=== PATIENT | female | born 1990 | race Caucasian/White ===

== ENCOUNTER → 2019-11-03 | Outpatient (CLI) | payer OTHER ==
--- NOTE | 2019-11-03 14:57 | US ---
EXAMINATION TYPE: US pelvic complete DATE OF EXAM: 11/03/2019 COMPARISON: NONE CLINICAL HISTORY: N91.2 Amenorrhea. TECHNIQUE: Transabdominal (TA). Date of LMP: 10/04/2019 EXAM MEASUREMENTS: Uterus: 10.4 x 4.4 x 5.6 cm Endometrial Stripe: Not definitely defined. Right Ovary: 2.9 x 2.6 x 2.9 cm Left Ovary: 3.2 x 1.8 x 3.5 cm Uterus not well visualized, patient declined transvaginal ultrasound today. 1. Uterus: Anteverted wnl 2. Endometrium: wnl 3. Right Ovary: wnl 4. Left Ovary: wnl 5. Bilateral Adnexa: wnl 6. Posterior cul-de-sac: no free fluid IMPRESSION: Suboptimal examination with transabdominal imaging. The patient declined transvaginal joseph ging. Ovaries appear unremarkable. Endometrial thickness is poorly defined as is the uterus.
== END | disposition home or self-care (01) ==
LOC: RADUSWWP 14:13
PROVIDERS: ATTEND Family Medicine
DX: R93.89 Abnormal findings on diagnostic imaging of other specified body structures (principal); N91.2 Amenorrhea, unspecified
CPT/HCPCS: 76856

== ENCOUNTER → 2019-11-21 | Outpatient (CLI) | payer OTHER ==
--- NOTE | 2019-11-21 12:03 | US ---
EXAMINATION TYPE: US transvaginal DATE OF EXAM: 11/21/2019 COMPARISON: NONE CLINICAL HISTORY: N91.2 Amenorrhea. TECHNIQUE: Transvaginal (TV). Date of LMP: 11/07/19 EXAM MEASUREMENTS: Uterus: 6.1 x 2.1 x 2.3cm Endometrial Stripe: 0.6 cm Right Ovary: Obscured by overlying bowel gas, body habitus Left Ovary: Obscured by overlying bowel gas, body habitus Patient of large body habitus. Technically difficult and limited study. 1. Uterus: unable to see the fundus due to overlying bowel, body habitus 2. Endometrium: echogenic foci within, not visualized in fundal area 3. Right Ovary: Obscured by overlying bowel gas, body habitus 4. Left Ovary: Obscured by overlying bowel gas, body habitus 5. Bilateral Adnexa: wnl 6. Posterior cul-de-sac: wnl IMPRESSION: The entirety of the uterus is nonvisualized due to patient body habitus and bowel gas and the ovaries are obscured by bowel gas. Endometrial thickness does appear within normal limits in thi s patient with amenorrhea.
== END | disposition home or self-care (01) ==
LOC: RADUSWWP 10:46
PROVIDERS: ATTEND Family Medicine
DX: N91.2 Amenorrhea, unspecified (principal)
CPT/HCPCS: 76830

== ENCOUNTER 2019-11-26 18:27 | Emergency (ER) | payer OTHER ==
[2019-11-26 20:06] LABS: Color,Urine Yellow
[2019-11-26 20:07] LABS: Appearance,Urine Clear (Clear); Bilirubin,Urine Negative (Negative); Blood,Urine Negative (Negative); Glucose,Urine (UA) Negative (Negative); Ketones,Urine Negative (Negative); Leukocyte Esterase,Urine Negative (Negative); Nitrite,Urine Negative (Negative); Protein,Urine Negative (Negative); Specific Gravity,Urine 1.025 (1.001-1.035); Urobilinogen,Urine 0.2 mg/dL (<2.0)
--- NOTE | 2019-11-26 20:52 | ED ---
General Adult HPI - General Chief complaint: Recheck/Abnormal Lab/Rx Stated complaint: elevated BP, light headed Time Seen by Provider: 11/26/19 19:10 Source: patient Mode of arrival: ambulatory Limitations: no limitations - History of Present Illness Initial comments: Patient is a 29-year-old female with history of hypertension presenting to emergency Department with a chief complaint of lightheadedness. 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 Patient states her blood pressure has been fluctuating. Patient states she had low 200s/130 at home. Patient states the blood pressure was normalized after she came to the ED. Patient also reports over the last 2 days she's had intermittent episodes of lightheadedness but not dizziness. Denies any chest pain shortness of breath back pain or abdominal pain. She has low suspicion for . Denies one-sided weakness or paresthesias. Denies any blurry vision, nausea, vomiting or diarrhea. States she is well-hydrated. No history of cardiac-related conditions. Patient states she has been travels weight to control her blood pressure. - Related Data Home Medications Medication Instructions Recorded Confirmed No Known Home Medications 05/14/15 05/14/15 Allergies Allergy/AdvReac Type Severity Reaction Status Date / Time latex Allergy Unknown Verified 11/26/19 18:33 Review of Systems ROS Statement: Those systems with pertinent positive or pertinent negative responses have been documented in the HPI. ROS Other: All systems not noted in ROS Statement are negative. Past Medical History Past Medical History: Hypertension Additional Past Medical History / Comment(s): irritable bowel History of Any Multi-Drug Resistant Organisms: None Reported Past Surgical History: Adenoidectomy, Section, Tonsillectomy Past Psychological History: No Psychological Hx Reported Smoking Status: Current every day smoker Past Alcohol Use History: Rare Past Drug Use History: None Reported General Exam Limitations: no limitations General appearance: alert, in no apparent distress, obese (Morbidly obese) Head exam: Present: atraumatic, normocephalic, normal inspection Eye exam: Present: normal appearance Pupils: Present: normal accommodation ENT exam: Present: normal exam, normal oropharynx, mucous membranes moist, TM's normal bilaterally, normal external ear exam Neck exam: Present: normal inspection, full ROM Respiratory exam: Present: normal lung sounds bilaterally Cardiovascular Exam: Present: regular rate, normal rhythm, normal heart sounds Extremities exam: Present: normal inspection, full ROM Back exam: Present: normal inspection, full ROM Neurological exam: Present: alert, oriented X3, CN II-XII intact, normal gait, reflexes normal Psychiatric exam: Present: normal affect, normal mood Skin exam: Present: warm, dry, intact, normal color Course Vital Signs 11/26/19 11/26/19 18:30 21:02 Temperature 98.6 F 98.1 F Pulse Rate 114 H 88 Respiratory 20 18 Rate Blood Pressure 148/81 149/84 O2 Sat by Pulse 99 99 Oximetry EKG Findings - EKG Comments: EKG Findings:: Normal sinus rhythm, no a C changes,. Ventricular rate 92, DC 134, QRS 84, QTC 447. Medical Decision Making - Medical Decision Making Patient is a 29-year-old female with history of hypertension presenting to emergency Department with a complaint of elevated blood pressure. Patient had high blood pressure while she was at home but it normalized when she came to the ED. She does take anti-hypertensive medication but states that is not working well any more. She denies chest pain shortness of breath or abdominal pain, one-sided weakness or paresthesias. Denies any headaches or blurry vision. EKG shows normal sinus rhythm. UA is unremarkable. No signs of protein or dysuria or . It appears the patient has asymptomatic hypertension. No further cardiac workup necessary at this time. Patient advised to follow-up with primary care in attempt to control her high blood pressure. Return parameters were thoroughly discussed the patient was understanding and agreeable. Case discussed with physician. - Lab Data Lab Results 11/26/19 11/26/19 Range/Units 19:30 19:30 Urine Color Yellow Urine Appearance Clear (Clear) Urine pH 6.0 (5.0-8.0) Ur Specific [place] 1.025 (1.001-1.035) Urine Protein Negative (Negative) Urine Glucose (UA) Negative (Negative) Urine Ketones Negative (Negative) Urine Blood Negative (Negative) Urine Nitrite Negative (Negative) Urine Bilirubin Negative (Negative) Urine Urobilinogen 0.2 (<2.0) mg/dL Ur Leukocyte Esterase Negative (Negative) Urine HCG, Qual Not Detected (Not Detectd) Disposition Clinical Impression: Asymptomatic hypertension Disposition: HOME SELF-CARE Condition: Stable Instructions (If sedation given, give patient instructions): Hypertension (ED) Additional Instructions: Please follow with her primary care. Return to emergency department if symptoms worsen. Continue taking your blood pressure medication. Is patient prescribed a controlled substance at d/c from ED?: No Referrals: Mark Shaffer MD [Primary Care Provider] - 1-2 days Time of Disposition: 20:52
[2019-11-26 21:08] VITALS: BP 149/84; PULSE 88; RESP 18; TEMP 98.1
== END 2019-11-26 21:02 | disposition home or self-care (01) ==
LOC: EC 18:27
DX: I10 Essential (primary) hypertension (principal); F17.200 Nicotine dependence, unspecified, uncomplicated; Z79.899 Other long term (current) drug therapy; Z91.040 Latex allergy status
CPT/HCPCS: 81003; 81025; 93005; 99284

== ENCOUNTER → 2024-06-30 | Outpatient (CLI) | payer OTHER ==
[2024-06-30 10:20] LABS: Basophils # (A) 0.04 X 10*3/uL (0.00-0.10); Basophils % (A) 0.6 %; Eosinophils # (A) 0.16 X 10*3/uL (0.04-0.35); Eosinophils % (A) 2.3 %; HGB 15.1 g/dL (12.0-15.0); Lymphocytes # (A) 1.58 X 10*3/uL (0.90-5.00); Lymphocytes % (A) 23.1 %; MCH 30.6 pg (27.0-32.0); MCHC 32.1 g/dL (32.0-37.0); MCV 95.3 FL (80.0-97.0); Mean Platelet Volume 13.9 FL (9.5-12.2); Monocytes # (A) 0.51 X 10*3/uL (0.20-1.00); Monocytes % (A) 7.5 %; NRBC Per 100 WBC 0 X 10*3/uL (0.00-0.01); Neutrophils # (A) 4.53 X 10*3/uL (1.80-7.70); Neutrophils % (A) 66.4 %; Platelet Count 180 X 10*3/uL (140-440); RBC 4.93 X 10*6/uL (4.10-5.20); WBC 6.83 X 10*3/uL (4.50-10.00)
[2024-06-30 10:36] LABS: Hepatitis A Antibody IgM Nonreactive (Nonreactive); Hepatitis B Core IgM Nonreactive (Nonreactive); Hepatitis B Surface Antigen Nonreactive (Nonreactive); Hepatitis C IgG Antibody Nonreactive (Nonreactive)
[2024-06-30 10:50] LABS: ALT 33 U/L (8-44); AST 17 U/L (13-35); Albumin 4.2 g/dL (3.8-4.9); Alkaline Phosphatase 75 U/L (41-126); BUN/Creat Ratio 10.67 Ratio (12.00-20.00); Blood Urea Nitrogen 9.6 mg/dL (9.0-27.0); Calcium 9.8 mg/dL (8.7-10.3); Carbon Dioxide 24.3 mmol/L (21.6-31.8); Chloride 105 mmol/L (96-109); Chol/HDL Ratio 4.14 Ratio; Glucose 115 mg/dL (70-110); LDL Cholesterol,Calculated 89.8 mg/dL (0.0-131.0); Sodium 141 mmol/L (135-145); Total Bilirubin 0.3 mg/dL (0.3-1.2); Total Protein 6.2 g/dL (6.2-8.2)
[2024-06-30 13:24] LABS: HSV I IgG Interp Negative (Negative); HSV II IgG Interp POSITIVE
[2024-06-30 13:25] LABS: HIV 2 AB Non-Reactive (Non-Reactive); HIV AB P24 Non-Reactive (Non-Reactive); HIV P24 AG Non-Reactive (Non-Reactive)
== END | disposition home or self-care (01) ==
LOC: LABWHC1 07:03
PROVIDERS: ATTEND Nurse Practitioner Family
DX: Z13.220 Encounter for screening for lipoid disorders (principal); Z13.29 Encounter for screening for other suspected endocrine disorder; I10 Essential (primary) hypertension
CPT/HCPCS: 36415; 80053; 80061; 80074; 82607; 82652; 83036; 84443; 85025; 86695; 86696; 86780; 87390